=== PATIENT | female | born 1975 | race Caucasian/White ===

== ENCOUNTER 2016-12-06 09:19 | Emergency (ER) | payer BC, OTHER ==
[2016-12-06 10:06] VITALS: BP 114/75
--- NOTE | 2016-12-06 10:19 | UC ---
Respiratory Complaint HPI - HPI Summary HPI Summary: Pt states symptoms on/off for the past 6 weeks. Pt has been congested, coughing , pressure on upper teeth from sinuses. Pt states chest hurts from coughing, and achy. She gets sinus infections a lot and knows this are the sx. she is planning on quitting smoking this year. she has lost 25 lbs in past yuear with diet and exercise. gets bronchitis as well. occasional wheezing. no asthma. has had to use inhaler a long time ago for these sx. has not gone to Dr for these sx this time. She also has some redness and rash left nares and surrounding area without d/c. - History of Current Complaint Chief Complaint: UCGeneralIllness Stated Complaint: RESPIRATORY COMPLAINT Time Seen by Provider: 12/06/16 10:02 Hx Last Menstrual Period: 01/31/2012 - Allergies/Home Medications Allergies/Adverse Reactions: Allergies Allergy/AdvReac Type Severity Reaction Status Date / Time Penicillins Allergy Unknown Unknown Verified 04/20/16 14:55 Reaction Details PMH/Surg Hx/FS Hx/Imm Hx Previously Healthy: Yes Endocrine History Of: Denies: Diabetes, Thyroid Disease Cardiovascular History Of: Denies: Cardiac Disorders, Hypertension, Pacemaker/ICD Respiratory History Of: Denies: COPD, Asthma GI/ History Of: Denies: Ulcer, Renal Disease Cancer History Of: Denies: Breast Cancer - Surgical History Surgical History: Yes Surgery Procedure, Year, and Place: TONSILS-1983. TUBAL LIGATION 2002. UTERINE -POLYPECTOMY -THEN ABLATION-2011 - Family History Known Family History: Positive: Hypertension - Social History Alcohol Use: Occasionally Substance Use Type: None Smoking Status (MU): Heavy Every Day Tobacco Smoker Amount Used/How Often: 1/2 ppd Have You Smoked in the Last Year: Yes - Immunization History Most Recent Influenza Vaccination: 9601-0920 Review of Systems Constitutional: Negative Skin: Negative Eyes: Negative ENT: Nasal Discharge Respiratory: Negative, Cough Cardiovascular: Negative Gastrointestinal: Negative Genitourinary: Negative Motor: Negative Neurovascular: Negative Musculoskeletal: Negative Neurological: Negative Psychological: Negative All Other Systems Reviewed And Are Negative: Yes Physical Exam Triage Information Reviewed: Yes Appearance: Well-Nourished, Ill-Appearing - mild distress Vital Signs: Initial Vital Signs Temp 98.8 F 12/06/16 09:54 Pulse 74 12/06/16 09:54 Resp 16 12/06/16 09:54 BP 114/75 12/06/16 09:54 Pulse Ox 100 12/06/16 09:54 Vital Signs Reviewed: Yes Eye Exam: Normal ENT: Positive: Hearing grossly normal, Pharyngeal erythema - + PND, + b/l maxillary and frontal tenderness, TMs normal, Other: - left nares and surrounding skin with mild erythema/. Negative: TM bulging, TM dull, TM red, Tonsillar swelling, Tonsillar exudate Dental Exam: Normal Neck exam: Normal Neck: Positive: Supple, Nontender, No Lymphadenopathy Respiratory: Positive: Lungs clear, No respiratory distress, No accessory muscle use, Decreased breath sounds. Negative: Crackles, Rhonchi, Stridor, Wheezing Cardiovascular Exam: Normal Cardiovascular: Positive: No Murmur, Pulses Normal, Brisk Capillary Refill Abdominal Exam: Normal Abdomen Description: Positive: Nontender, Soft Musculoskeletal Exam: Normal Neurological Exam: Normal Psychological Exam: Normal Skin Exam: Normal UC Diagnostic Evaluation - Laboratory O2 Sat by Pulse Oximetry: 100 Respiratory Course/Dx - Differential Dx/Diagnosis Differential Diagnosis/HQI/PQRI: Asthma, Bronchitis, Laryngitis, Lower Resp Infection, Sinusitis Provider Diagnoses: sinusitis, bronchitis, impetigo Discharge - Discharge Plan Condition: Stable Disposition: HOME Prescriptions: Albuterol 2.5MG/3ML (0.083%)* [Ventolin 2.5 MG/3 ML NEB.CHAU*] 2.5 mg INH Q4H #1 neb.chau Albuterol HFA INHALER* [Ventolin HFA Inhaler*] 2 puff INH Q4H PRN #1 mdi PRN Reason: Cough Azithromyxin ANTONIO (NF) [Z-Antonio (Zithromax)] 250 mg PO .ZPAK INSTRUCTIONS #6 tab Mupirocin 2% OINT* [Bactroban 2 % Oint*] 1 applic TOPICAL BID #1 tube Patient Education Materials: Sinusitis (ED), Acute Bronchitis (ED), Impetigo ( ED) Referrals: Dion Cardona MD [Primary Care Provider] - 4 Days Additional Instructions: Make sure to take a probiotic with antibiotic. rest, fluids. Stopping smoking would be very beneficial.
== END 2016-12-06 10:45 | disposition home or self-care (01) ==
LOC: UCCORT 09:19
DX: J32.9 Chronic sinusitis, unspecified (principal); J40 Bronchitis, not specified as acute or chronic; L01.00 Impetigo, unspecified; F17.200 Nicotine dependence, unspecified, uncomplicated; Z88.0 Allergy status to penicillin
CPT/HCPCS: 99212; G0463

== ENCOUNTER 2018-10-02 08:53 | Emergency (ER) | payer OTHER ==
--- OUTSIDE RECORDS SUMMARY | 2018-10-02 09:13 | XMS REPORT ---
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 11848520 mastopathy of unspecified breast Problem Mastodynia N64.4 Active 37375140 Problem 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 61490608 mastopathy of right breast Problem Diffuse cystic N60.12 Active 84683708 mastopathy of left breast Problem Other specified N94.89 Active 372124044 conditions associated with female genital organs and menstrual cycle Problem Excessive and N92.0 Active 195990268 frequent menstruation with regular cycle Problem 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 Problem Endometriosis of N80.0 Active 55502455 uterus ALLERGIES No Information ENCOUNTERS Encounter Location Date Diagnosis [facility] [address] Jul, OBGYN [place], [place] [id number] [facility] [address] Jul, OBGYN [place], [place] [id number] [facility] 103 April, OBGYN [place], [place] [id number] [facility] 103 April, OBG[place] [id number] [facility] 103 April, OBGYN [place] [id number] [facility] 103 Oct, OBGYN [place] [id number] [facility] 103 Aug, OBGYN [place], [place] [id number] [facility] 103 Aug, Family history of malignant [facility] neoplasm of breast Z80.3 ; [place], [place] [id number] Other specified urinary incontinence N39.498 and Anal spasm K59.4 [facility] 103 Jul, OBGYN [place] [id number] [facility] 103 Jul, OBG[place], [place] [id number] [facility] 103 Jul, OBGYN [place] [id number] [facility] 103 Jul, Dysmenorrhea, unspecified OBGYN [facility] N94.6 ; Anal spasm K59.4 ; [place], [place] [id number] Other specified urinary incontinence N39.498 ; Endometriosis of uterus N80.0 ; Family history of malignant neoplasm of breast Z80.3 ; Other specified conditions associated with female genital organs and menstrual cycle N94.89 and Dysuria R30.0 [facility]ly [facility] [address] [place], Jun, Medical [facility] [id number] [facility] [address] Jun, OBGYN [place] [id number] [facility] [address] [place] [address] Jun, Dysmenorrhea, unspecified [address] [place], N94.6 ; Anal spasm K59.4 ; [place] [id number] Other specified urinary incontinence N39.498 ; Endometriosis of uterus N80.0 ; Family history of malignant neoplasm of breast Z80.3 and Other specified conditions associated with female genital organs and menstrual cycle N94.89 [facility] [address] [place], Jun, [facility] [id number] [facility] [address] Jun, [place] [id number] [facility] [facility] [address] [place] [address] Jun, Dysmenorrhea, unspecified [address] [place], N94.6 ; Anal spasm K59.4 ; [place] [id number] Other specified urinary incontinence N39.498 ; Endometriosis of uterus N80.0 ; Family history of malignant neoplasm of breast Z80.3 and Other specified conditions associated with female genital organs and menstrual cycle N94.89 [facility] Jun, OBGYN [place] [id number] [facility] 103 Jun, OBGYN [place] [id number] [facility] 103 May, OBGYN [place], [place] [id number] [facility] 103 May, Dysmenorrhea, unspecified OBGYN [facility] N94.6 ; Other specified [place] [id number] conditions associated with female genital organs and menstrual cycle N94.89 and Stricture and stenosis of cervix uteri N88.2 [facility] 103 May, Family history of malignant [facility] neoplasm of breast Z80.3 [place], [place] [id number] [facility] 103 May, OBGYN [place] [id number] [facility] 103 May, Dysmenorrhea, unspecified OBGYN [facility] N94.6 ; Anal spasm K59.4 ; [place], [place] [id number] Other specified urinary incontinence N39.498 ; Endometriosis of uterus N80.0 ; Family history of malignant neoplasm of breast Z80.3 and Other specified conditions associated with female genital organs and menstrual cycle N94.89 [facility] 103 April, [place] [id number] [facility] 103 April, Dysmenorrhea, unspecified OBGYN [facility] N94.6 ; Anal spasm K59.4 [place], [place] [id number] and Other specified urinary incontinence N39.498 [facility] 103 April, [facility]menorrhea, [facility] N94.6 [place] [id number] [facility] 103 Mar, [place] [id number] [facility] 103 Jan, [place] [id number] [facility] 103 Jan, [place] [id number] [facility] 103 Jan, [facility] [place] [id number] (routine) with abnormal findings Z01.411 ; Encounter for screening for malignant neoplasm of cervix Z12.4 ; Diffuse cystic mastopathy of unspecified breast N60.19 ; Family history of malignant neoplasm of breast Z80.3 ; Dysmenorrhea, unspecified N94.6 ; Anal spasm K59.4 and Other specified urinary incontinence N39.498 [facility] 103 Dec, [place] [id number] [facility] 103 Oct, [place] [id number] [facility] 103 Oct, [place] [id number] [facility] 103 Sep, [place] [id number] [facility] 103 Sep, [place]BG[place] [id number] [facility] 103 May, OBGYN [place], [place] [id number] [facility] 103 May, Diffuse cystic [facility]opathy [facility] of unspecified breast [place], [place] [id number] N60.19 and Family history of malignant neoplasm of breast Z80.3 [facility] 103 April, [place] [id number] [facility] 103 April, OBGYN [place] [id number] [facility] 103 April, [place] [id number] [facility] 103 Mar, [place] [id number] [facility] 103 Mar, Mastodynia N64.4 ; Diffuse [facility] cystic mastopathy of [place] [id number] unspecified breast N60.19 and Family history of malignant neoplasm of breast Z80.3 [facility] 103 Sep, [place] [id number] [facility] 103 Sep, [place] [id number] [facility] 103 Sep, [place] [id number] [facility] 103 Sep, [facility] examination (general) [place], [place] [id number] (routine) with abnormal findings Z01.411 ; Encounter for screening for malignant neoplasm of cervix Z12.4 ; Other specified noninflammatory disorders of vagina N89.8 ; Mastodynia N64.4 ; Diffuse cystic mastopathy of unspecified breast N60.19 ; Family history of malignant neoplasm of breast Z80.3 and Pelvic and perineal pain R10.2 [facility] 103 Sep, Other specified conditions [facility] associated with female [place], [place] [id number] genital organs and menstrual cycle N94.89 [facility] 103 Oct, Mammogram-Abnormal 793.80 [place] [id number] [facility] 103 Oct, [place] [id number] [facility] 103 Oct, [place] [id number] [facility] 103 Oct, [place] [id number] [facility] 103 Oct, [place] [id number] [facility] 103 Aug, [place] [id number] [facility] 103 Aug, [place] [id number] [facility] 103 Aug, [place] [id number] [facility] [address] Aug, PELVIC PAIN [address] [address] [address] [address] [place], [place] [id number] [facility] 103 April, Mammogram-Abnormal 793.80 [place] [id number] [facility] [facility] [address] April, [address]liculitis [address] [facility] [address] [place], [facility] HX-BREAST MALIG [place] [id number] V16.3 [facility] 103 Jan, [place] [id number] [facility] 103 Oct, Abnormal Breast Findings OBGYN [facility] 793.89 [place] [id number] [facility] 103 Aug, OBG[place] [id number] [facility] 103 Jul, HEMATURIA NOS 599.70 OBGYN [place] [id number] [facility] 103 Jul, OBGYN [place] [id number] [facility] 103 Jul, Menometrorrhagia 626.2 ; OBGYN [facility] FAMILY HX-BREAST MALIG [place], [place] [id number] V16.3 and Incontinence 788.30 [facility] 103 Jul, OBGYN [place] [id number] [facility] 103 May, OBGYN [place] [id number] [facility] 103 April, Menometrorrhagia 626.2 OBGYN [place] [id number] [facility] 103 Mar, Menometrorrhagia 626.2 OBG[place] [id number] [facility] 103 Mar, Menometrorrhagia 626.2 OBGYN [place] [id number] [facility] 103 Mar, Ovarian cyst NOS 620.2 OBGYN [place] [id number] [facility] 103 Mar, OBGYN [place] [id number] [facility] 103 Mar, Menometrorrhagia 626.2 OBGYN [place] [id number] [facility] 103 Jan, OBGYN [place], [place] [id number] [facility] [address] [place] [address] Jan, Menometrorrhagia 626.2 ; OBGYN [address] [place], Endometrial polyp 621.0 and [place] [id number] Ovarian cyst NOS 620.2 [facility] 103 Jan, OBGYN [place] [id number] [facility] 103 Jan, OBGYN [place], [place] [id number] [facility] 103 Jan, Menometrorrhagia 626.2 ; OBGYN [facility] Endometrial polyp 621.0 and [place], [place] [id number] Ovarian cyst NOS 620.2 [facility] 103 Jan, OBGYN [place] [id number] [facility] 103 Jan, Menometrorrhagia 626.2 ; OBGYN [facility] Endometrial polyp 621.0 and [place], [place] [id number] Ovarian cyst NOS 620.2 [facility] [address] [place], Jan, [place] [id number] [facility] Jan, Menometrorrhagia 626.2 ; [address] [place], Endometrial polyp 621.0 and [place] [id number] Ovarian cyst NOS 620.2 [facility] 103 Dec, OBGYN [place], [place] [id number] [facility] 103 Dec, Menometrorrhagia 626.2 ; OBGYN [facility] Endometrial polyp 621.0 and [place], [place] [id number] Ovarian cyst NOS 620.2 [facility] 103 Dec, OBGYN [place] [id number] [facility] 103 Dec, Menometrorrhagia 626.2 OBGYN [place] [id number] [facility] 103 Dec, Menometrorrhagia 626.2 OBGYN [place] [id number] [facility] 103 Dec, Menometrorrhagia 626.2 and OBGYN [facility] Endometrial polyp 621.0 [place], [place] [id number] [facility] 103 Dec, OBGYN [place] [id number] [facility] 103 Oct, OBGYN [place], [place] [id number] [facility] 103 Oct, OBGYN [place] [id number] [address] Oct, Menometrorrhagia 626.2 ; [address] [place], Ovarian cyst NOS 620.2 ; [place] [id number] PELVIC PAIN 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[address] Nov, [address]BGYN [address] [place], [place] [id number] IMMUNIZATIONS No Known Immunizations SOCIAL HISTORY Never Assessed REASON FOR REFERRAL FUNCTIONAL STATUS PLAN OF CARE VITAL SIGNS MEDICATIONS Unknown Medications PROCEDURES No Known procedures RESULTS No Results REASON FOR VISIT COM Discharge Letter Sent Insurance Providers [facility] Member Patient Patient Patient Patient Patient Subscriber Subscriber Subscriber Group Insurance Plan Plan Plan Plan ID Relationship Address Phone Name Date of ID Name Date of No Type Insurance Insurance Insurance Coverage to Subscriber Address Phone Name Dates [place] [phone] [place] self [place]bra [id number] [place] [address] [place] [facility] [address] [employer] [phone] [employer] self Debra [id number] Blue [address] 89 Blue [place] 2 Cross/Blue [place] Cross/Blue Shield [id number] Shield MEDICAL (GENERAL) HISTORY Type Description Date Medical History anemia Medical History high cholesterol Medical History Migraines w/o aura Medical History latent tuberculosis- just diagnosis Medical History Menometrorrhagia Medical History Endometrial polyp Surgical History BTL 2002 Surgical History hysteroscopy, D & C, polypectomy 01/27/13 Surgical History hysteroscopy/Novasure 03/27/13 Surgical History US guided hysteroscopy, D&C 06/12/17 Surgical History LTH, BS, cystoscopy 06/25/17 Hospitalization History childbirth
--- OUTSIDE RECORDS SUMMARY | 2018-10-02 09:13 | XMS REPORT ---
:[address] 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 45775239 mastopathy of unspecified breast Problem Mastodynia N64.4 Active 93236179 Problem 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 72399092 mastopathy of right breast Problem Diffuse cystic N60.12 Active 96826407 mastopathy of left breast Problem Other specified N94.89 Active 724664733 conditions associated with female genital organs and menstrual cycle Problem Excessive and N92.0 Active 680200076 frequent menstruation with regular cycle Problem 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 stenosis of cervix uteri Problem Endometriosis of N80.0 Active 20008584 uterus ALLERGIES No Information ENCOUNTERS Encounter Location Date Diagnosis [facility] [address] Jul, OBG[place], [place] [id number] [facility] [address] Jul, [place] [id number] [facility] 103 April, [place], [place] [id number] [facility] [address] April, [place] [id number] [facility] 103 April, [place] [id number] [place] [facility] 103 Oct, [place] [id number] [place] [facility] 103 Aug, O[place] [id number] [facility] [facility] 103 Aug, Family history of malignant [facility] neoplasm of breast Z80.3 ; [place], [place] [id number] Other specified urinary incontinence N39.498 and Anal spasm K59.4 [place] [facility] 103 Jul, OBG[place] [id number] [facility] 103 Jul, [place] [id number] [facility] 103 Jul, [place] [id number] [facility] 103 Jul, Dysmenorrhea, unspecified OBGYN [facility] N94.6 ; Anal spasm K59.4 ; [place], [place] [id number] Other specified urinary incontinence N39.498 ; Endometriosis of uterus N80.0 ; Family history of malignant neoplasm of breast Z80.3 ; Other specified conditions associated with female genital organs and menstrual cycle N94.89 and Dysuria R30.0 [facility] [address] [place], Jun, Medical [facility] [id number] [place] [facility] [address] Jun, OBG[place] [id number] [facility] [address] [place] [address] Jun, Dysmenorrhea, unspecified [address] [place], N94.6 ; Anal spasm K59.4 ; [place] [id number] Other specified urinary incontinence N39.498 ; Endometriosis of uterus N80.0 ; Family history of malignant neoplasm of breast Z80.3 and Other specified conditions associated with female genital organs and menstrual cycle N94.89 [facility] [address] [place], Jun, [facility] [id number] [place] [facility] [address] Jun, [place] [id number] [facility] [address] [place] [address] Jun, Dysmenorrhea, unspecified [address] [place], N94.6 ; Anal spasm K59.4 ; [place] [id number] Other specified urinary incontinence N39.498 ; Endometriosis of uterus N80.0 ; Family history of malignant neoplasm of breast Z80.3 and Other specified conditions associated with female genital organs and menstrual cycle N94.89 [facility] Jun, [place] [id number] [place] [facility] 103 Jun, [place], [place] [id number] [place] [facility] 103 May, [place], [place] [id number] [facility] 103 May, Dysmenorrhea, unspecified OBGYN [facility] N94.6 ; Other specified [place], [place] [id number] conditions associated with female genital organs and menstrual cycle N94.89 and Stricture and stenosis of cervix uteri N88.2 [place] [facility] 103 May, Family history of malignant [facility] neoplasm of breast Z80.3 [place] [id number] [place] [facility] 103 May, O[place] [id number] [facility] 103 May, Dysmenorrhea, unspecified OBGYN [facility] N94.6 ; Anal spasm K59.4 ; [place], [place] [id number] Other specified urinary incontinence N39.498 ; Endometriosis of uterus N80.0 ; Family history of malignant neoplasm of breast Z80.3 and Other specified conditions associated with female genital organs and menstrual cycle N94.89 [place] [facility] 103 April, [place] [id number] [facility] 103 April, Dysmenorrhea, unspecified OBGYN [facility] N94.6 ; Anal spasm K59.4 [place] [id number] and Other specified urinary incontinence N39.498 [place] [facility] 103 April, [facility]orrhea, [facility] N94.6 [place], [place] [id number] [place] [facility] 103 Mar, [place] [id number] [facility] [facility] 103 Jan, [place] [id number] [facility] [address] Jan, [place] [id number] [facility] 103 Jan, [facility] [place], [place] [id number] (routine) with abnormal findings Z01.411 ; Encounter for screening for malignant neoplasm of cervix Z12.4 ; Diffuse cystic mastopathy of unspecified breast N60.19 ; Family history of malignant neoplasm of breast Z80.3 ; Dysmenorrhea, unspecified N94.6 ; Anal spasm K59.4 and Other specified urinary incontinence N39.498 [place] [facility] 103 Dec, [place] [id number] [facility] [facility] 103 Oct, [place] [id number] [facility] 103 Oct, [place] [id number] [facility] 103 Sep, [place] [id number] [facility] 103 Sep, [place] [id number] [facility] 103 May, [place] [id number] [facility] [facility] 103 May, Diffuse cystic [facility] of unspecified breast [place], [place] [id number] N60.19 and Family history of malignant neoplasm of breast Z80.3 [place] [facility] 103 April, [place] [id number] [facility] 103 April, [place] [id number] [facility] 103 April, [place] [id number] [facility] 103 Mar, [place] [id number] [facility] 103 Mar, Mastodynia N64.4 ; Diffuse [facility] cystic mastopathy of [place], [place] [id number] unspecified breast N60.19 and Family history of malignant neoplasm of breast Z80.3 [facility] [facility] 103 Sep, [place] [id number] [facility] [facility] 103 Sep, [place] [id number] [facility] [facility] 103 Sep, [place] [id number] [facility] 103 Sep, [facility] [place], [place] [id number] (routine) with abnormal findings Z01.411 ; Encounter for screening for malignant neoplasm of cervix Z12.4 ; Other specified noninflammatory disorders of vagina N89.8 ; Mastodynia N64.4 ; Diffuse cystic mastopathy of unspecified breast N60.19 ; Family history of malignant neoplasm of breast Z80.3 and Pelvic and perineal pain R10.2 [place] [facility] 103 Sep, Other specified conditions [facility] associated with female [place], [place] [id number] genital organs and menstrual cycle N94.89 [facility] 103 Oct, Mammogram-Abnormal 793.80 [place] [id number] [facility] [facility] 103 Oct, [place] [id number] [facility] 103 Oct, [place] [id number] [facility] 103 Oct, [place] [id number] [place] [facility] 103 Oct, [place] [id number] [facility] [facility] 103 Aug, [place] [id number] [facility] [facility] 103 Aug, [place] [id number] [facility] [facility] 103 Aug, [place] [id number] [facility] [address] Aug, [facility] [address] [address] [facility] [address] [place], [place] [id number] [place] [facility] 103 April, Mammogram-Abnormal 793.80 [place] [id number] [facility] [address] April, Folliculitis 704.8 and [facility] [address] [place], [facility] HX-BREAST MALIG [place] [id number] V16.3 [place] [facility] 103 Jan, [place] [id number] [place] [facility] 103 Oct, Abnormal Breast Findings OBGYN [facility] 793.89 [place] [id number] [place] [facility] 103 Aug, [place] [id number] [place] [facility] 103 Jul, HEMATURIA NOS 599.70 [place] [id number] [place] [facility] 103 Jul, [place], [place] [id number] [place] [facility] 103 Jul, Menometrorrhagia 626.2 ; OBGYN [facility] FAMILY HX-BREAST MALIG [place], [place] [id number] V16.3 and Incontinence 788.30 [place] [facility] 103 Jul, [place] [id number] [place] [facility] 103 May, [place], [place] [id number] [facility] [facility] 103 April, Menometrorrhagia 626.2 [place] [id number] [place] [facility] 103 Mar, Menometrorrhagia 626.2 [place] [id number] [place] [facility] 103 Mar, Menometrorrhagia 626.2 [place] [id number] [place] [facility] 103 Mar, Ovarian cyst NOS 620.2 [place] [id number] [place] [facility] 103 Mar, [place] [id number] [place] [facility] 103 Mar, Menometrorrhagia 626.2 [place] [id number] [facility] [facility] 103 Jan, [place], [place] [id number] [facility] [address] [place] [address] Jan, Menometrorrhagia 626.2 ; [address] [place], Endometrial polyp 621.0 and [place] [id number] Ovarian cyst NOS 620.2 [place] [facility] 103 Jan, [place], [place] [id number] [facility] 103 Jan, [place] [id number] [facility] [facility] 103 Jan, Menometrorrhagia 626.2 ; OBGYN [facility] Endometrial polyp 621.0 and [place], [place] [id number] Ovarian cyst NOS 620.2 [facility] Jan, [place], [place] [id number] [facility] Jan, Menometrorrhagia 626.2 ; OBGYN [facility] Endometrial polyp 621.0 and [place], [place] [id number] Ovarian cyst NOS 620.2 [facility] [address] [place], Jan, [facility] [place] [id number] [facility] Jan, Menometrorrhagia 626.2 ; [address] [place], Endometrial polyp 621.0 and [place] [id number] Ovarian cyst NOS 620.2 [place] [facility] 103 Dec, O[place], [place] [id number] [place] [facility] 103 Dec, Menometrorrhagia 626.2 ; OBGYN [facility] Endometrial polyp 621.0 and [place], [place] [id number] Ovarian cyst NOS 620.2 [place] [facility] 103 Dec, OBG[place], [place] [id number] [facility] Dec, Menometrorrhagia 626.2 O[place]YN [place], [place] [id number] [place] [facility] 103 Dec, Menometrorrhagia 626.2 O[place], [place] [id number] [place] [facility] 103 Dec, Menometrorrhagia 626.2 and OBGYN [facility] Endometrial polyp 621.0 [place], [place] [id number] [place] [facility] 103 Dec, [place], [place] [id number] [place] [facility] 103 Oct, [place], [place] [id number] [place] [facility] 103 Oct, OBG[place] [id number] [address] Oct, Menometrorrhagia 626.2 ; [address] [place], Ovarian cyst NOS 620.2 ; [place] [id number] [facility] 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, [address]YN [address] [place], [place] [id number] IMMUNIZATIONS No Known Immunizations SOCIAL HISTORY Never Assessed REASON FOR REFERRAL FUNCTIONAL STATUS PLAN OF CARE VITAL SIGNS MEDICATIONS Unknown Medications PROCEDURES No Known procedures RESULTS No Results REASON FOR VISIT Letter 07/28- Annual Insurance Providers [facility] Member Patient Patient Patient Patient Patient Subscriber Subscriber Subscriber Group Insurance Plan Plan Plan Plan ID Relationship Address Phone Name Date of ID Name Date of No Type Insurance Insurance Insurance Coverage to Subscriber Address Phone Name Dates [employer] [phone] [employer] self Debra [id number] Blue [id number] 89 Blue [place] 2 Cross/Blue [place] Cross/Blue Shield [id number] Shield [phone] [place] self Debra [id number] Care [place] [address] Care of [facility] [id number] MEDICAL (GENERAL) HISTORY Type Description Date Medical [...]
--- OUTSIDE RECORDS SUMMARY | 2018-10-02 09:13 | XMS REPORT ---
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 89217542 mastopathy of unspecified breast Problem Mastodynia N64.4 Active 11426974 Problem 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 85716551 mastopathy of right breast Problem Diffuse cystic N60.12 Active 09598940 mastopathy of left breast Problem Other specified N94.89 Active 912831160 conditions associated with female genital organs and menstrual cycle Problem Excessive and N92.0 Active 899325659 frequent menstruation with regular cycle Problem Stricture and N88.2 Active 76195745 stenosis of cervix uteri Problem Endometriosis of N80.0 Active 46571959 uterus ALLERGIES No Information ENCOUNTERS Encounter Location Date Diagnosis [address] Oct, [address] [place], [place] [id number] [facility] 103 Sep, [place] [id number] [facility] 103 Jul, [place] [id number] [facility] 103 Jul[place] [id number] [facility] 103 April, [place] [id number] [facility] 103 April, [place] [id number] [facility] 103 April, [place] [id number] [facility] 103 Oct, [place] [id number] [facility] 103 Aug, [place] [id number] [facility] 103 Aug, [facility] Z80.3 ; [place], [place] [id number] Other specified urinary incontinence N39.498 and Anal spasm K59.4 [facility] 103 Jul, [place] [id number] [facility] 103 Jul, [place] [id number] [facility] 103 Jul, [place] [id number] [facility] 103 Jul, Dysmenorrhea, unspecified [facility] N94.6 ; Anal spasm K59.4 ; [place], [place] [id number] Other specified urinary incontinence N39.498 ; Endometriosis of uterus N80.0 ; Family history of malignant neoplasm of breast Z80.3 ; Other specified conditions associated with female genital organs and menstrual cycle N94.89 and Dysuria R30.0 [facility] [address] [place], Jun, [facility] [id number] [facility] Jun, [place] [id number] [facility] [address] Jun, Dysmenorrhea, unspecified [address] [place], N94.6 ; Anal spasm K59.4 ; [place] [id number] Other specified urinary incontinence N39.498 ; Endometriosis of uterus N80.0 ; Family history of malignant neoplasm of breast Z80.3 and Other specified conditions associated with female genital organs and menstrual cycle N94.89 [facility] [address] [place], Jun, [facility] [id number] [facility] Jun, [place] [id number] [facility] [address] Jun, Dysmenorrhea, unspecified [address] [place], N94.6 ; Anal spasm K59.4 ; [place] [id number] Other specified urinary incontinence N39.498 ; Endometriosis of uterus N80.0 ; Family history of malignant neoplasm of breast Z80.3 and Other specified conditions associated with female genital organs and menstrual cycle N94.89 [facility] 103 Jun, [place] [id number] [facility] 103 Jun, [place] [id number] [facility] 103 May, [place] [id number] [facility] 103 May, Dysmenorrhea, unspecified [facility] N94.6 ; Other specified [place] [id number] conditions associated with female genital organs and menstrual cycle N94.89 and Stricture and stenosis of cervix uteri N88.2 [facility] 103 May, Family history of malignant [facility] neoplasm of breast Z80.3 [place] [id number] [facility] 103 May, [place] [id number] [facility] 103 May, [facility]menorrhea, unspecified [facility] N94.6 ; Anal spasm K59.4 ; [place], [place] [id number] Other specified urinary incontinence N39.498 ; Endometriosis of uterus N80.0 ; Family history of malignant neoplasm of breast Z80.3 and Other specified conditions associated with female genital organs and menstrual cycle N94.89 [facility] 103 April, [place] [id number] [facility] 103 April, Dysmenorrhea, unspecified [facility] N94.6 ; Anal spasm K59.4 [place], [place] [id number] and Other specified urinary incontinence N39.498 [facility] 103 April, Dysmenorrhea, unspecified [facility] N94.6 [place] [id number] [facility] 103 Mar, [place] [id number] [facility] 103 Jan, [place] [id number] [facility] Jan, [place] [id number] [facility] 103 Jan, Encounter for gynecological [facility] examination (general) [place], [place] [id number] (routine) with abnormal findings Z01.411 ; Encounter for screening for malignant neoplasm of cervix Z12.4 ; Diffuse cystic mastopathy of unspecified breast N60.19 ; Family history of malignant neoplasm of breast Z80.3 ; Dysmenorrhea, unspecified N94.6 ; Anal spasm K59.4 and Other specified urinary incontinence N39.498 [facility] 103 Dec, [place] [id number] [facility] 103 Oct, [facility] [place] [id number] [facility] 103 Oct, [place] [id number] [facility] 103 Sep, [place] [id number] [facility] 103 Sep, [place] [id number] [facility] 103 May, [place] [id number] [facility] 103 May, Diffuse cystic mastopathy OBGYN [facility] of unspecified breast [place], [place] [id number] N60.19 and Family history of malignant neoplasm of breast Z80.3 [facility] 103 April, [place] [id number] [facility] 103 April, [place] [id number] [facility] 103 April, [place] [id number] [facility] 103 Mar, [place] [id number] [facility] 103 Mar, Mastodynia N64.4 ; Diffuse OBGYN [facility] cystic mastopathy of [place] [id number] unspecified breast N60.19 and Family history of malignant neoplasm of breast Z80.3 [facility] 103 Sep, [place] [id number] [facility] 103 Sep, [place] [id number] [facility] 103 Sep, [place] [id number] [facility] 103 Sep, Encounter for gynecological [facility] [address] examination (general) [place], [place] [id number] (routine) with abnormal findings Z01.411 ; Encounter for screening for malignant neoplasm of cervix Z12.4 ; Other specified noninflammatory disorders of vagina N89.8 ; Mastodynia N64.4 ; Diffuse cystic mastopathy of unspecified breast N60.19 ; Family history of malignant neoplasm of breast Z80.3 and Pelvic and perineal pain R10.2 [facility] 103 Sep, Other specified conditions [facility] associated with female [place] [id number] genital organs and menstrual cycle N94.89 [facility] 103 Oct, Mammogram-Abnormal 793.80 [place], [place] [id number] [facility] 103 Oct, [place] [id number] [facility] 103 Oct, [place] [id number] [facility] 103 Oct, [place] [id number] [facility] 103 Oct, [place] [id number] [facility] 103 Aug[place] [id number] [facility] 103 Aug, [place] [id number] [facility] 103 Aug, [place] [id number] [facility] [address] [facility] Aug, PELVIC PAIN [address] [place], [place] [id number] [facility] 103 April, Mammogram-Abnormal 793.80 [place] [id number] [facility] [address] April, Folliculitis [address] [place], [facility] [id number] V16.3 [facility] 103 Jan, [place] [id number] [facility] 103 Oct, Abnormal Breast Findings OBGYN [facility] 793.89 [place] [id number] [facility] 103 Aug, [place] [id number] [facility] 103 Jul, HEMATURIA NOS 599.70 [place] [id number] [facility] 103 Jul, [place] [id number] [facility] 103 Jul, Menometrorrhagia 626.2 ; OBGYN [facility] HX-BREAST MALIG [place] [id number] V16.3 and Incontinence 788.30 [facility] 103 Jul, [place] [id number] [facility] 103 May, [place] [id number] [facility] 103 April, Menometrorrhagia 626.2 [place] [id number] [facility] 103 Mar, Menometrorrhagia 626.2 [place] [id number] [facility] 103 Mar, Menometrorrhagia 626.2 [place] [id number] [facility] 103 Mar, Ovarian cyst NOS 620.2 [place] [id number] [facility] 103 Mar, [place] [id number] [facility] 103 Mar, Menometrorrhagia 626.2 [place] [id number] [facility] 103 Jan, [place] [id number] [facility] [address] [place] [address] Jan, Menometrorrhagia 626.2 ; [address] [place], Endometrial polyp [address] [place] [id number] Ovarian cyst NOS 620.2 [facility] 103 Jan, [place] [id number] [facility] 103 Jan, [place] [id number] [facility] 103 Jan, Menometrorrhagia 626.2 ; OBGYN [facility] Endometrial polyp 621.0 and [place], [place] [id number] Ovarian cyst NOS 620.2 [facility] 103 Jan, [place] [id number] [facility] 103 Jan, Menometrorrhagia 626.2 ; OBGYN [facility] Endometrial polyp 621.0 and [place], [place] [id number] Ovarian cyst NOS 620.2 [facility] [address] [place], Jan, [facility] [place] [id number] [facility] [address] [place] [address] Jan, Menometrorrhagia 626.2 ; [address] [place], Endometrial polyp 621.0 and [place] [id number] Ovarian cyst NOS 620.2 [facility] 103 Dec, [place] [id number] [facility] 103 Dec, Menometrorrhagia 626.2 ; OBGYN [facility] Endometrial polyp 621.0 and [place], [place] [id number] Ovarian cyst NOS 620.2 [facility] 103 Dec, [place] [id number] [facility] 103 Dec, Menometrorrhagia 626.2 [place] [id number] [facility] 103 Dec, Menometrorrhagia 626.2 [place] [id number] [facility] 103 Dec, Menometrorrhagia 626.2 and OBGYN [facility] Endometrial polyp 621.0 [place], [place] [id number] [facility] 103 Dec, [place] [id number] [facility] 103 Oct, [place] [id number] [facility] 103 Oct, [place] [id number] [facility] Oct, Menometrorrhagia 626.2 ; [address] [place], Ovarian cyst NOS 620.2 ; [place] [id number] PELV[facility] PAIN 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[address] [facility] Nov, [address] [place] [id number] IMMUNIZATIONS No Known Immunizations SOCIAL HISTORY Never Assessed REASON FOR REFERRAL FUNCTIONAL STATUS PLAN OF CARE VITAL SIGNS MEDICATIONS Unknown Medications PROCEDURES No Known procedures RESULTS No Results REASON FOR VISIT 09/29 LMTCB- Patient needs to schedule Insurance Providers [facility] Member Patient Patient Patient Patient Patient Subscriber Subscriber Subscriber Group Insurance Plan Plan Plan Plan ID Relationship Address Phone Name Date of ID Name Date of No Type Insurance Insurance Insurance Coverage to Subscriber Address Phone Name Dates [employer] [phone] [employer] self Debra [id number] Blue [id number] 89 Blue [employer] 2 Cross/[place] Cross/Blue Shield [address] Shield [phone] [place] [phone] [id number] [address] [address] MEDICAL (GENERAL) HISTORY Type Description Date Medical [...]
[2018-10-02 10:32] VITALS: BP 129/78
--- NOTE | 2018-10-02 12:02 | UC ---
Skin Complaint HPI - HPI Summary HPI Summary: Pt presents with c/o red, raised, tender rash in groin and suprapubic area. Pt shaves her pubic hair. Pt also c/o urinary urgency and frequency X 1 month. - History of Current Complaint Chief Complaint: UCSkin Time Seen by Provider: 10/02/18 10:53 Stated Complaint: SKIN CONCERN - GROIN AREA Hx Obtained From: Patient Hx Last Menstrual Period: 01/31/2012 ?: No Onset/Duration: Gradual Onset Skin Exposure Onset/Duration: Days Ago Timing: Constant Onset Severity: Mild Current Severity: Mild Pain Intensity: 4 Pain Scale Used: 0-10 Numeric Location: Discrete Character: Redness, Raised, Painful Aggravating Factor(s): Touch, Other - shaving Alleviating Factor(s): Nothing Associated Signs & Symptoms: Positive: Rash, Tenderness Related History: Other: - shaving - Allergy/Home Medications Allergies/Adverse Reactions: Allergies Allergy/AdvReac Type Severity Reaction Status Date / Time Penicillins Allergy Unknown Unknown Verified 10/02/18 10:25 Reaction Details Review of Systems Constitutional: Negative Skin: Rash Eyes: Negative ENT: Negative Respiratory: Negative Cardiovascular: Negative Gastrointestinal: Negative Genitourinary: Frequency, Urgency Motor: Negative Neurovascular: Negative Musculoskeletal: Negative Neurological: Negative Psychological: Negative Is Patient Immunocompromised?: No All Other Systems Reviewed And Are Negative: Yes PMH/Surg Hx/FS Hx/Imm Hx Previously Healthy: Yes Respiratory History: Bronchitis - Surgical History Surgical History: Yes Surgery Procedure, Year, and Place: TONSILS-1983. TUBAL LIGATION 2002. UTERINE -POLYPECTOMY -THEN ABLATION. Hysterectomy - Family History Known Family History: Positive: Hypertension - Social History Occupation: Employed Full-time Lives: With Family Alcohol Use: Occasionally Substance Use Type: None Smoking Status (MU): Heavy Every Day Tobacco Smoker Type: Cigarettes Amount Used/How Often: 1/2 ppd Have You Smoked in the Last Year: Yes - Immunization History Most Recent Influenza Vaccination: [id number] Most Recent Tetanus Shot: UTD Physical Exam Triage Information Reviewed: Yes Appearance: Well-Appearing Vital Signs: Initial Vital Signs Temp 98.1 F 10/02/18 10:26 Pulse 59 10/02/18 10:26 Resp 16 10/02/18 10:26 BP 129/78 10/02/18 10:26 Pulse Ox 100 10/02/18 10:26 Vital Signs Reviewed: Yes Eye Exam: Normal ENT Exam: Normal Dental Exam: Normal Neck exam: Normal Respiratory Exam: Normal Cardiovascular Exam: Normal Musculoskeletal Exam: Normal Neurological Exam: Normal Psychological Exam: Normal Skin: Positive: rashes - scattered4-5 mild tender "lumps" with closed comedones. right side groin and mons pubis. Course/Dx - Course Course Of Treatment: Pt was instructed to discontinue shving her public hair and to follow up with pCP for urinary urgency and frequency. - Differential Diagnoses - Skin Complaint Differential Diagnoses: Cellulitis - Diagnoses Provider Diagnoses: folliculitis. urinary frequency Discharge - Sign-Out/Discharge Documenting (check all that apply): Patient Departure All imaging exams completed and their final reports reviewed: No Studies - Discharge Plan Condition: Stable Disposition: HOME Prescriptions: Sulfamethox/Trimethoprim DS* [Bactrim DS 800/160 TAB*] 1 tab PO Q12H #14 tab Patient Education Materials: Folliculitis (ED), Urinary Urgency and Frequency ( DC) Referrals: Dion Cardona MD [Primary Care Provider] - If Needed - Billing Disposition and Condition Condition: STABLE Disposition: Home
== END 2018-10-02 11:34 | disposition home or self-care (01) ==
LOC: UCCORT 08:53
DX: L73.9 Follicular disorder, unspecified (principal); R35.0 Frequency of micturition; F17.210 Nicotine dependence, cigarettes, uncomplicated; Z88.0 Allergy status to penicillin
CPT/HCPCS: 81003; 99212; G0463